=== PATIENT | male | born 1990 | race African-American/Black ===

== ENCOUNTER 2016-08-15 15:07 | Emergency (ER) | payer OTHER, SELFPAY ==
[~2016-08-15] VITALS: Ht 185.4 cm; Wt 104.3 kg
[2016-08-15 15:07] VITALS: BP 135/66
[2016-08-15] MEDS ORDERED: PENI500T PO (15:39)
== END 2016-08-15 16:12 | disposition home or self-care (01) ==
LOC: M ED 16:08
DX: J02.9 Acute pharyngitis, unspecified (principal)